=== PATIENT | male | born 1990 | race American Indian/Alaskan Native ===

== ENCOUNTER 2016-11-21 07:43 | Emergency (ER) | payer BC ==
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
[2016-11-21 08:34] LABS: Urine Drugs of Abuse Note Disclamer
[2016-11-21 08:40] LABS: Basophils % (Auto) 0.3 % (0.0-1.8); Eosinophils % (Auto) 1.1 % (0.0-4.3); Hematocrit 45.2 % (35.5-45.6); Hemoglobin 15.4 gm/dl (11.8-15.2); Mean Corpuscular HGB Conc 34 % (32-34); Mean Corpuscular Hemoglobin 29 pg (28-32); Mean Corpuscular Volume 85 fl (84-94); Platelet Count 277 K/mm3 (140-440); Red Blood Count 5.32 M/mm3 (3.65-5.03)
[2016-11-21 09:00] LABS: Alanine Aminotransferase 22 units/L (7-56); Albumin 4.3 g/dL (3.9-5); Albumin/Globulin Ratio 1.3 %; Alkaline Phosphatase 73 units/L (35-129); Anion Gap 18 mmol/L; BUN/Creatinine Ratio 15.71; Blood Urea Nitrogen 11 mg/dL (9-20); Calcium 8.9 mg/dL (8.4-10.2); Carbon Dioxide 22 mmol/L (22-30); Chloride 104.5 mmol/L (98-107); Glucose 101 mg/dL (75-100); Potassium 4.3 mmol/L (3.6-5.0); Sodium 140 mmol/L (137-145); Total Protein 7.5 g/dL (6.3-8.2)
[2016-11-21 09:17] LABS: Bilirubin,Direct < 0.2 mg/dL (0-0.2); Bilirubin,Indirect 0.1 mg/dL
--- NOTE | 2016-11-21 09:24 | Cat Scan Report ---
Cranial CT without contrast. History: Seizure. Findings: There is no evidence of acute hemorrhage or infarct. There is a small crescent shaped retrocerebellar cyst on the left side. The ventricles are normal. There no intra-axial masses. The calvarium is intact. Impression: No significant findings. A retrocerebellar cyst on the left, probably representing an arachnoid cyst is incidentally noted.
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
[2016-11-21 13:16] VITALS: BP 113/73
== END 2016-11-21 13:28 | disposition home or self-care (01) ==
LOC: ED 07:43
DX: R56.9 Unspecified convulsions (principal); G93.0 Cerebral cysts
CPT/HCPCS: 36415; 70450; 72125; 80048; 80074; 80307; 85025